=== PATIENT | female | born 1980 | race Caucasian/White ===

== ENCOUNTER → 2022-10-13 15:00 | Outpatient (BNVA) | payer OTHER, SELFPAY | PROVIDERS: PCP Internal Medicine; Visit Provider Anesthesiology ==

== ENCOUNTER 2022-10-25 13:11 | Outpatient (REF) | payer OTHER, SELFPAY ==
--- NOTE | ~2022-10-25 | MR_ITS ---
EXAMINATION: MR CERVICAL SPINE WITHOUT CONTRAST CLINICAL INFORMATION: Cervical radiculopathy COMPARISON: None TECHNIQUE: MRI of the cervical spine was obtained using routine sequences without contrast. FINDINGS: The craniocervical junction is intact. Straightening of the normal cervical lordosis. Trace anterolisthesis of C2 on C3 and trace retrolisthesis of C6 on C7. Vertebral body heights are normal without acute compression fracture. No suspicious osseous lesion. T3 intraosseous vertebral body hemangioma. Diffuse disc desiccation with moderate to severe disc height loss spanning C4-C5 through C6-C7, most pronounced at C6-C7 where there are prominent type I Modic endplate changes. Additional mild multilevel type I/II Modic endplate change. There are multilevel degenerative changes with level by level detail as follows: C2-C3: Shallow central disc protrusion without spinal canal or neural foraminal stenosis. C3-C4: Disc osteophyte complex with superimposed central disc protrusion and uncovertebral spurring. Mild spinal canal stenosis with indentation along the midline ventral cord. No neural foraminal stenosis. C4-C5: Disc osteophyte complex with broad-based posterior disc protrusion eccentric to the right and bilateral uncovertebral joint hypertrophy. Mild spinal canal stenosis and mild to moderate bilateral neural foraminal stenosis. C5-C6: Disc osteophyte complex with central disc protrusion and bilateral uncovertebral joint hypertrophy. Mild spinal canal stenosis without neural foraminal stenosis. C6-C7: Disc osteophyte complex with broad-based central disc protrusion and bilateral uncovertebral joint hypertrophy. Mild spinal canal stenosis with suggestion of ventral cord flattening and minimal bilateral neural foraminal narrowing. C7-T1: Left greater than right facet arthrosis. No spinal canal or neural foraminal stenosis. The cervical spinal cord is normal in signal. No epidural fluid collection, mass, or hematoma. No significant abnormalities of the paraspinal musculature. The flow voids of the major cervical vessels are maintained. The visualized intracranial structures are normal. No demonstrated abnormalities in the visualized neck. MR/MR cervical spine wo con IMPRESSION: Mild cervical spondylosis as described above with mild spinal canal stenosis from C3-C4 to C6-C7. No cord compression or cord signal abnormality. Neural foraminal stenosis is mild to moderate bilaterally at C4-C5 and minimal at C6-C7. Discogenic disease, most pronounced at C6-C7 with associated type I Modic endplate change.
== END 2022-10-25 13:12 | disposition home or self-care (01) ==
LOC: HO.MRI 13:11
PROVIDERS: PCP Internal Medicine; Visit Provider Anesthesiology
DX: M47.812 Spondylosis without myelopathy or radiculopathy, cervical region (principal); M50.30 Other cervical disc degeneration, unspecified cervical region; M54.81 Occipital neuralgia
CPT/HCPCS: 72141

== ENCOUNTER → 2022-11-24 10:54 | Outpatient (BNVA) | payer OTHER, SELFPAY | PROVIDERS: PCP Internal Medicine; Visit Provider Anesthesiology ==